=== PATIENT | male | born 1975 | race African-American/Black ===

== ENCOUNTER 2023-09-22 09:53 | Emergency (ER) | payer OTHER ==
[2023-09-22 11:25] LABS: ALT (SGPT) 15 U/L (8-55); AST (SGOT) 12 U/L (5-34); Albumin 2.9 g/dL (3.5-5.0); Alkaline Phosphatase 56 U/L (40-110); Anion Gap 10 mmol/L (10-20); BUN (Urea Nitrogen) 8 mg/dL (8.9-20.6); Bilirubin, Total 0.6 mg/dL (0.2-1.2); Calc. Creatinine Clearance 0 mL/min (70-130); Carbon Dioxide 20 mmol/L (22-29); Chloride 113 mmol/L (98-107); Estimated GFR 115; Globulin 2.8 g/dL (2.4-3.5); Glucose 75 mg/dL (70-105); Protein, Total 5.7 g/dL (6.0-8.3); Sodium 140 mmol/L (136-145)
[2023-09-22 11:28] LABS: Hematocrit 33.7 % (42.0-52.0); Hemoglobin 10.8 g/dL (14.0-18.0); Mean Corpuscular HGB CONC 31.9 g/dL (32.0-36.0); Mean Corpuscular Hemoglobin 26.4 pg (27.0-31.0); Mean Corpuscular Volume 82.7 fl (78.0-98.0); Mean Platelet Volume 5.9 fL (7.4-10.4); Platelet Count 197 10x3/uL (130-400); RBC Distribution Width 14.6 % (11.5-14.5); Red Blood Cell (RBC) Count 4.07 mill/uL (4.70-6.10); White Blood Cell (WBC) Count 14.5 10x3/uL (4.8-10.8)
[2023-09-22 11:32] LABS: Band 13 % (5-11); Eosinophils 1 % (0-10); Hypochromia SLIGHT = 6-15 cells (100X) (0-5/hpf); Lymphocytes 3 % (21-51); MDiff Complete? YES; Monocytes 2 % (0-10); Neutrophil 81 % (42-75); Platelet Adequacy Comment Appears Adequate
[2023-09-22 11:42] LABS: SARS-CoV-2 NAA Rapid Test Not Detected (NotDetected)
[2023-09-22] MEDS ORDERED: Potassium Chloride 20 MEQ TAB ONE (12:15)
[2023-09-22] MEDS ORDERED: Gabapentin 100 MG CAP ONE (12:24)
[2023-09-22 12:25] LABS: Bilirubin Negative (Negative); Blood, Urine Trace (Negative); Clarity Clear (Clear); Glucose, Urine (Dipstick) Negative (Negative); Ketone, Urine Negative (Negative); Leukocyte Negative (Negative); Nitrite Negative (Negative); Protein, Urine (Dipstick) Trace mg/dL (Neg-Trace); Urobilinogen 0.2 mg/dL (Less than 2); pH, Urine 7.5 (5.0-9.0)
[2023-09-22 12:39] LABS: CAUTI Indications for Culture Spinal Cord Injury; RBC/HPF 0-3 HPF (0-3); Squamous Epithelial 0-3 HPF (0-3); WBC/HPF None Seen HPF (0-3)
[2023-09-22 12:40] LABS: Bacteria/HPF None Seen HPF (None Seen)
[2023-09-22 12:42] LABS: Urine Culture Reflex No No
[2023-09-22] MEDS ORDERED: Baclofen 10 MG TAB PO SCH (12:45)
[2023-09-22] MEDS ORDERED: Ondansetron PF 4 MG/2 ML Vial ONE (13:25)
[2023-09-22] MEDS ORDERED: traMADol HCl 50 MG TAB ONE (13:35)
== END 2023-09-22 14:51 ==
LOC: NAV ERS 09:53
DX: B34.9 Viral infection, unspecified (principal); R11.10 Vomiting, unspecified; I10 Essential (primary) hypertension
CPT/HCPCS: 71045; 80053; 81001; 83605; 85025; 87040; 96374; J2405

== ENCOUNTER 2023-09-28 12:29 | Emergency (ER) | payer OTHER ==
[2023-09-28] MEDS ORDERED: Ibuprofen 200 MG TAB ONE ×2 (12:40→12:51)
[2023-09-28 13:32] LABS: Hematocrit 36.6 % (42.0-52.0); Hemoglobin 11.8 g/dL (14.0-18.0); Mean Corpuscular Volume 81.1 fl (78.0-98.0); Red Blood Cell (RBC) Count 4.52 mill/uL (4.70-6.10); White Blood Cell (WBC) Count 17.2 10x3/uL (4.8-10.8)
[2023-09-28 13:33] LABS: Manual Diff?? YES; Mean Corpuscular HGB CONC 32.1 g/dL (32.0-36.0); Mean Corpuscular Hemoglobin 26.1 pg (27.0-31.0); Mean Platelet Volume 5.8 fL (7.4-10.4); Platelet Count 361 10x3/uL (130-400); RBC Distribution Width 13.5 % (11.5-14.5)
[2023-09-28 13:39] LABS: ALT (SGPT) 17 U/L (8-55); AST (SGOT) 13 U/L (5-34); Albumin 3.6 g/dL (3.5-5.0); Alkaline Phosphatase 66 U/L (40-110); Anion Gap 12 mmol/L (10-20); BUN (Urea Nitrogen) 7 mg/dL (8.9-20.6); Bilirubin, Total 0.4 mg/dL (0.2-1.2); Calc. Creatinine Clearance 0 mL/min (70-130); Carbon Dioxide 25 mmol/L (22-29); Chloride 103 mmol/L (98-107); Estimated GFR 111; Globulin 4.4 g/dL (2.4-3.5); Glucose 95 mg/dL (70-105); Potassium 3.4 mmol/L (3.5-5.1); Sodium 137 mmol/L (136-145)
[2023-09-28 13:43] LABS: Band 10 % (5-11); Lymphocytes 6 % (21-51); MDiff Complete? YES; Monocytes 1 % (0-10); Neutrophil 83 % (42-75); Platelet Adequacy Comment Appears Adequate
[2023-09-28 13:52] LABS: Troponin I Less than 0.010 ng/mL (< 0.028)
[2023-09-28 13:56] LABS: SARS-CoV-2 NAA Rapid Test Not Detected (NotDetected)
[2023-09-28] MEDS ORDERED: cefTRIAXone (ROCEPHIN) 2 GM VIAL ONE (14:36)
[2023-09-28] MEDS ORDERED: fentaNYL 50 mcg/mL 1 mL Vial ONE ×2 (14:36→21:05)
[2023-09-29] MEDS ORDERED: Acetaminophen 500 MG TAB ONE (01:35)
[2023-09-29] MEDS ORDERED: Sodium Chloride 0.9% 250 ML 250 ML ONE (08:32)
[2023-09-29] MEDS ORDERED: Vancomycin 1 GM VIAL ONE ×2 (08:32→09:31)
[2023-09-29] MEDS ORDERED: Acetaminophen 325 MG TAB ONE ×2 (09:37→18:29)
[2023-09-29] MEDS ORDERED: Amlodipine 5 MG TAB ONE (12:34)
[2023-09-29] MEDS ORDERED: Gabapentin 100 MG CAP ONE (12:34)
[2023-09-29] MEDS ORDERED: Lisinopril 20 MG TAB ONE ×2 (12:34→22:32)
[2023-09-29] MEDS ORDERED: Calcium Carbonate 500 MG ChewTAB ONE (12:35)
[2023-09-29] MEDS ORDERED: Baclofen 10 MG TAB PO SCH ×2 (13:00→22:00)
[2023-09-29] MEDS ORDERED: Terazosin HCl 1 MG CAP PO SCH ×2 (13:00→22:45)
[2023-09-29] MEDS ORDERED: Rivaroxaban 10 MG TAB PO SCH ×2 (13:00→22:45)
[2023-09-29 13:13] LABS: Bilirubin Negative (Negative); Blood, Urine Trace (Negative); Clarity Clear (Clear); Glucose, Urine (Dipstick) Negative (Negative); Ketone, Urine Negative (Negative); Leukocyte Negative (Negative); Nitrite Negative (Negative); Protein, Urine (Dipstick) Negative (Neg-Trace); Specific Gravity, Urine 1.015 (1.005-1.030); Urobilinogen 0.2 mg/dL (Less than 2)
[2023-09-29 13:28] LABS: Bacteria/HPF None Seen HPF (None Seen); CAUTI Indications for Culture Pelvic or flank pain; RBC/HPF 0-3 HPF (0-3); Squamous Epithelial 0-3 HPF (0-3); WBC/HPF 0-3 HPF (0-3)
[2023-09-29 13:29] LABS: Urine Culture Reflex No No
[2023-09-29] MEDS ORDERED: cefTRIAXone (ROCEPHIN) 2 GM VIAL ONE (13:55)
[2023-09-29] MEDS ORDERED: Sodium Chloride 0.9% 100 ML ONE ×2 (13:56→20:18)
[2023-09-29] MEDS ORDERED: Cefepime 2 GM VIAL ONE (20:18)
[2023-09-29] MEDS ORDERED: metroNIDAZOLE 500 MG (100 mL) BAG ONE (20:56)
[2023-09-29] MEDS ORDERED: Gabapentin 300 MG CAP PO SCH (22:00)
[2023-09-30] MEDS ORDERED: Acetaminophen 325 MG TAB ONE ×2 (01:46→10:19)
[2023-09-30] MEDS ORDERED: Cefepime 2 GM VIAL ONE ×2 (04:20→12:26)
[2023-09-30] MEDS ORDERED: Sodium Chloride 0.9% 100 ML ONE ×2 (04:20→12:26)
[2023-09-30] MEDS ORDERED: metroNIDAZOLE 500 MG (100 mL) BAG ONE ×2 (04:59→12:26)
[2023-09-30 08:10] LABS: #Basophils 0.1 thou/uL (0.0-0.2); #Eosinphils 0.4 thou/uL (0.0-0.7); #Lymphocytes 1.1 thou/uL (1.20-3.40); #Monocytes 0.8 thou/uL (0.11-0.59); #Neutrophils 15.4 thou/uL (1.40-6.50); %Basophils 0.3 % (0.0-1.0); %Eosinophils 2.4 % (0.0-10.0); %Lymphocytes 6.3 % (21.0-51.0); %Monocytes 4.4 % (0.0-10.0); %Neutrophils 86.6 % (42.0-75.0); Hematocrit 33.9 % (42.0-52.0); Mean Corpuscular HGB CONC 32.4 g/dL (32.0-36.0); Mean Corpuscular Hemoglobin 26.2 pg (27.0-31.0); Mean Corpuscular Volume 80.8 fl (78.0-98.0); Mean Platelet Volume 5.5 fL (7.4-10.4); Platelet Count 402 10x3/uL (130-400); RBC Distribution Width 13.8 % (11.5-14.5); Red Blood Cell (RBC) Count 4.19 mill/uL (4.70-6.10); White Blood Cell (WBC) Count 17.8 10x3/uL (4.8-10.8)
[2023-09-30] MEDS ORDERED: Baclofen 10 MG TAB PO SCH ×2 (08:15→14:30)
[2023-09-30] MEDS ORDERED: Gabapentin 300 MG CAP PO SCH ×2 (08:15→14:30)
[2023-09-30 08:22] LABS: Anion Gap 11 mmol/L (10-20); BUN (Urea Nitrogen) 6 mg/dL (8.9-20.6); Calc. Creatinine Clearance 0 mL/min (70-130); Calcium 8.9 mg/dL (7.8-10.44); Carbon Dioxide 25 mmol/L (22-29); Chloride 104 mmol/L (98-107); Estimated GFR 113; Glucose 113 mg/dL (70-105); Sodium 137 mmol/L (136-145)
[2023-09-30] MEDS ORDERED: Calcium Carbonate 500 MG ChewTAB ONE (08:29)
[2023-09-30] MEDS ORDERED: Amlodipine 5 MG TAB ONE (08:29)
[2023-09-30] MEDS ORDERED: Lisinopril 20 MG TAB ONE (08:29)
[2023-09-30 08:55] LABS: Vancomycin, Trough 1.2 ug/mL
[2023-09-30] MEDS ORDERED: Vancomycin HCl 500 MG VIAL ONE (09:06)
[2023-09-30] MEDS ORDERED: Sodium Chloride 0.9% 500 ML ONE (09:06)
[2023-09-30] MEDS ORDERED: Vancomycin 1 GM VIAL ONE (09:06)
[2023-09-30] MEDS ORDERED: Bacitracin 1 PK ONE (10:08)
[2023-09-30] MEDS ORDERED: Potassium Chloride 20 MEQ TAB ONE (10:11)
[2023-09-30] MEDS ORDERED: traMADol HCl 50 MG TAB ONE (13:53)
== END 2023-09-30 17:45 | disposition short-term general hospital (02) ==
LOC: NAV ERS 12:29
DX: L08.9 Local infection of the skin and subcutaneous tissue, unspecified (principal); G83.10 Monoplegia of lower limb affecting unspecified side; I10 Essential (primary) hypertension
CPT/HCPCS: 36415; 71045; 80048; 80053; 80202; 81001; 83605; 83880; 84484; 85025; 87040; 93005; 94760; J0692; J0696; J3010; J3370; J3490; J7030; J7050

== ENCOUNTER 2023-12-16 02:29 | Emergency (ER) | payer OTHER ==
[2023-12-16 04:05] LABS: #Basophils 0.1 thou/uL (0.0-0.2); #Eosinphils 0.3 thou/uL (0.0-0.7); #Lymphocytes 1.1 thou/uL (1.20-3.40); #Monocytes 0.5 thou/uL (0.11-0.59); #Neutrophils 3.1 thou/uL (1.40-6.50); %Basophils 1.4 % (0.0-1.0); %Eosinophils 6.2 % (0.0-10.0); %Lymphocytes 22.4 % (21.0-51.0); %Monocytes 8.7 % (0.0-10.0); %Neutrophils 61.3 % (42.0-75.0); Hematocrit 35.2 % (42.0-52.0); Hemoglobin 11.1 g/dL (14.0-18.0); Mean Corpuscular HGB CONC 31.6 g/dL (32.0-36.0); Mean Corpuscular Hemoglobin 25.6 pg (27.0-31.0); Mean Corpuscular Volume 81.1 fl (78.0-98.0); Platelet Count 266 10x3/uL (130-400); RBC Distribution Width 15.4 % (11.5-14.5); Red Blood Cell (RBC) Count 4.34 mill/uL (4.70-6.10); White Blood Cell (WBC) Count 5.1 10x3/uL (4.8-10.8)
[2023-12-16 04:19] LABS: ALT (SGPT) 25 U/L (8-55); AST (SGOT) 28 U/L (5-34); Alkaline Phosphatase 91 U/L (40-110); Anion Gap 16 mmol/L (10-20); BUN (Urea Nitrogen) 10 mg/dL (8.9-20.6); Bilirubin, Total 0.2 mg/dL (0.2-1.2); Calc. Creatinine Clearance 0 mL/min (70-130); Calcium 9.3 mg/dL (7.8-10.44); Carbon Dioxide 21 mmol/L (22-29); Chloride 105 mmol/L (98-107); Estimated GFR 110; Globulin 4.3 g/dL (2.4-3.5); Glucose 106 mg/dL (70-105); Potassium 4.7 mmol/L (3.5-5.1); Protein, Total 8.3 g/dL (6.0-8.3); Sodium 137 mmol/L (136-145)
[2023-12-16 04:26] LABS: Bilirubin Negative (Negative); Blood, Urine Trace (Negative); Clarity Clear (Clear); Glucose, Urine (Dipstick) Negative (Negative); Ketone, Urine Negative (Negative); Leukocyte Trace (Negative); Nitrite Positive (Negative); Protein, Urine (Dipstick) Negative (Neg-Trace); Specific Gravity, Urine 1.025 (1.005-1.030); Urobilinogen 0.2 mg/dL (Less than 2)
[2023-12-16 04:33] LABS: Bacteria/HPF 3+ HPF (None Seen); CAUTI Indications for Culture Fever or rigors; Urine Culture Reflex No No
[2023-12-16] MEDS ORDERED: Ketorolac Tromethamine 30 MG (1 mL) VIAL ONE (05:24)
[2023-12-16] MEDS ORDERED: cefTRIAXone (ROCEPHIN) 2 GM VIAL ONE (05:24)
== END 2023-12-16 07:10 ==
LOC: NAV ERS 02:29
DX: N39.0 Urinary tract infection, site not specified (principal); I10 Essential (primary) hypertension; Z79.899 Other long term (current) drug therapy; Z86.718 Personal history of other venous thrombosis and embolism; Z79.01 Long term (current) use of anticoagulants
CPT/HCPCS: 71045; 80053; 81001; 83605; 85025; 93005; 94760; 96361; 96365; 96375; J0696; J1885

== ENCOUNTER 2024-03-23 11:04 | Emergency (ER) | payer OTHER ==
[2024-03-23] MEDS ORDERED: Silver Sulfadiazine 50 GM TUBE ONE (11:45)
[2024-03-23] MEDS ORDERED: Naproxen 500 MG TAB ONE (12:31)
== END 2024-03-23 13:56 | disposition short-term general hospital (02) ==
LOC: NAV ERS 11:04
DX: T25.222A Burn of second degree of left foot, initial encounter (principal); T25.221A Burn of second degree of right foot, initial encounter; T31.0 Burns involving less than 10% of body surface; I10 Essential (primary) hypertension; M79.89 Other specified soft tissue disorders; X11.0XXA Contact with hot water in bath or tub, initial encounter; Y93.89 Activity, other specified; Y92.142 Bathroom in prison as the place of occurrence of the external cause
CPT/HCPCS: 99284

== ENCOUNTER 2024-06-06 16:20 | Emergency (ER) | payer OTHER ==
[2024-06-06 17:11] LABS: ALT (SGPT) 22 U/L (8-55); AST (SGOT) 18 U/L (5-34); Albumin 3.9 g/dL (3.5-5.0); Alkaline Phosphatase 95 U/L (40-110); Anion Gap 13 mmol/L (10-20); BUN (Urea Nitrogen) 11 mg/dL (8.4-25.7); Bilirubin, Total 0.6 mg/dL (0.2-1.2); Calc. Creatinine Clearance 0 mL/min (70-130); Calcium 9.7 mg/dL (7.8-10.44); Carbon Dioxide 24 mmol/L (22-29); Chloride 102 mmol/L (98-107); Estimated GFR 106; Globulin 4.3 g/dL (2.4-3.5); Glucose 89 mg/dL (70-105); Potassium 4.1 mmol/L (3.5-5.1); Protein, Total 8.2 g/dL (6.0-8.3); Sodium 135 mmol/L (136-145)
[2024-06-06 17:26] LABS: Hematocrit 42.9 % (42.0-52.0); Hemoglobin 13.3 g/dL (14.0-18.0); Red Blood Cell (RBC) Count 5.23 mill/uL (4.70-6.10)
[2024-06-06 17:27] LABS: #Lymphocytes 0.9 thou/uL (1.20-3.40); #Monocytes 0.6 thou/uL (0.11-0.59); #Neutrophils 12.4 thou/uL (1.40-6.50); %Basophils 0.3 % (0.0-1.0); %Eosinophils 0.6 % (0.0-10.0); %Lymphocytes 8.2 % (21.0-51.0); %Monocytes 4.1 % (0.0-10.0); %Neutrophils 88.7 % (42.0-75.0); Manual Diff?? NO; Mean Corpuscular HGB CONC 31.3 g/dL (32.0-36.0); Mean Corpuscular Hemoglobin 25.5 pg (27.0-31.0); Mean Platelet Volume 6.2 fL (7.4-10.4); Platelet Count 314 10x3/uL (130-400); RBC Distribution Width 13.9 % (11.5-14.5)
[2024-06-06 17:28] LABS: #Eosinophils 0.1 thou/uL (0.0-0.7)
[2024-06-06] MEDS ORDERED: cefTRIAXone (ROCEPHIN) 1 GM VIAL ONE (18:59)
[2024-06-06] MEDS ORDERED: Ketorolac Tromethamine 30 MG (1 mL) VIAL ONE (18:59)
[2024-06-06] MEDS ORDERED: Sodium Chloride 0.9% 1,000 ML ONE (18:59)
[2024-06-06 19:12] LABS: Bilirubin Negative (Negative); Blood, Urine Trace (Negative); Clarity Clear (Clear); Glucose, Urine (Dipstick) Negative (Negative); Ketone, Urine Negative (Negative); Leukocyte Small (Negative); Nitrite Positive (Negative); Protein, Urine (Dipstick) Negative (Neg-Trace); RBC/HPF 0-3 HPF (0-3); Urobilinogen 0.2 mg/dL (Less than 2); pH, Urine 7.5 (5.0-9.0)
[2024-06-06 19:13] LABS: Bacteria/HPF Rare-Few HPF (None Seen); CAUTI Indications for Culture Pelvic or flank pain; WBC/HPF 0-3 HPF (0-3)
[2024-06-06 19:14] LABS: Urine Culture Reflex No No
[2024-06-06] MEDS ORDERED: Sulfameth/Trimethoprim DS 800-160mg TAB ONE (20:28)
== END 2024-06-06 21:57 ==
LOC: NAV ERS 16:20
DX: N10 Acute pyelonephritis (principal); A41.9 Sepsis, unspecified organism; I10 Essential (primary) hypertension; Z79.899 Other long term (current) drug therapy
CPT/HCPCS: 36415; 80053; 81001; 83605; 83880; 85025; 87040; 87086; 96361; 96365; 96375; J0696; J1885; J7030